=== PATIENT | female | born 1970 | race Caucasian/White ===

== ENCOUNTER 2017-08-13 17:37 | Emergency (ER) ==
[2017-08-13 17:40] VITALS: BP 144/85; TEMP 98.8; BMI 35.6
--- NOTE | 2017-08-13 18:08 | ED.PDOC ---
General ED Provider: Dr. YAMEL COX Chief Complaint: Headache Stated Complaint: Frontal CACERES since this AM. Visiting with her daughter who was dx'd with sinusitis yesterday. PMH of migraines but Current headache is different. No photophobia. Increasing nausea and vomitting this afternoon. Started vomitting streaks of blood. Time Seen by Physician: 17:59 Mode of Arrival: Walk-In Information Source: Patient Exam Limitations: No limitations Nursing and Triage Documentation Reviewed and Agree: Yes Neurological Complaint Exam - Headache Complaint/Exam Onset: Sudden Duration: 10 hours Symptoms Are: Still present Timing: Constant Episodes Lasting: Hours Worst Headache Ever: No Initial Severity: Severe Current Severity: Severe Location: Right, Left, Frontal (left side > right) Character: Reports: Throbbing Aggravating: Reports: None Alleviating: Reports: None Associated Signs and Symptoms: Reports: Nausea, Vomiting Related Surgical History: Reports: None SAH Risk Factors: Reports: None Meningitis Risk Factors: Reports: None SDH Risk Factors: Reports: None Temporal Arteritis Risk Factors: Reports: Female, Normal Head CT Within Last 12 Months: No Fundoscopic Exam: Present: Normal Findings Papilledema Present: No Temporal Artery Tenderness: Present: None Sinus Tenderness: Present: Maxillary (left only), Frontal (left only) TMJ Tenderness: Present: None Meningeal Signs Positive: No Pain on Passive Flexion-Positive Kernig's: No ROM Limited In: No Limitiations Focal Weakness: Present: None Focal Sensory Loss: Present: None Gait: Normal Nystagmus Present: No Gag Reflex Present: Yes [id number]: Normal Findings Romberg Test Positive: No Babinski Sign: Negative Right, Negative Left Heel to Toe Normal: No Differential Diagnoses: Sinus Headache Review of Systems - Review Of Systems Constitutional: Reports: Malaise Eyes: Reports: No symptoms Ears, Nose, Mouth, Throat: Reports: No symptoms (except some sinus pressure) Respiratory: Reports: No symptoms Cardiac: Reports: No symptoms GI: Reports: Nausea, Vomiting (streaks of blood in vomitus) : Reports: No symptoms Musculoskeletal: Reports: No symptoms, Neck pain (multiple bulging cervical disks, vomitting is aggravating them with inc neck pain) Skin: Reports: No symptoms Neurological: Reports: Headache All Other Systems: Reviewed and Negative Past Medical History - Past Medical History Endocrine: Reports: DM 2 Cardiovascular: Reports: Hypertension Respiratory: Reports: None Hematological: Reports: None Gastrointestinal: Reports: None Genitourinary: Reports: None Neuro/Psych: Reports: None Musculoskeletal: Reports: Arthritis Cancer: Reports: None Last Menstrual Period: N/A - Surgical History General Surgical History: Reports: None - Family History Family History: Reports: Unknown - Social History Smoking Status: Current every day smoker Hx Substance Use: No Alcohol Screening: None Lives: With family - Immunizations Tetanus Shot up to Date: No Influenza Vaccine within 12 Months: No Pneumococcal Vaccine up to Date: No Physical Exam - Physical Exam Appearance: Well-appearing, Well-nourished Ill-appearing: None Pain Distress: Moderate Eyes: NOREEN, EOMI, Conjunctiva clear ENT: Nose normal, Oropharynx normal, TMs Occluded (TMs garcia and dull, tender to percussion over left maxillary and frontal sinuses) Neck: Supple (mild anterior cervical lymphadenopathy) Respiratory: Airway patent, Breath sounds clear, Breath sounds equal, Respirations nonlabored Cardiovascular: RRR, Pulses normal, No rub, No murmur GI/: Soft, Nontender, No masses, Bowel sounds normal, No Organomegaly Musculoskeletal: Normal strength, ROM intact, No edema, No calf tenderness Skin: Warm, Dry, Normal color Neurological: Sensation intact, Motor intact, Reflexes intact, Cranial nerves intact, Alert, Oriented Psychiatric: Affect appropriate, Mood appropriate Critical Care Note - Critical Care Note Total Time (mins): 0 Course - Course Orders, Labs, Meds: Orders Category Date Time Status Morphine Sulfate [Morphine 2 mg/ml Syringe] MEDS 08/13/17 18:15 Stat 2 mg IM ONCE STA Ondansetron [Zofran Odt] MEDS 08/13/17 18:15 Stat 4 mg PO ONCE STA Medications Discontinued Medications Generic Name Dose Route Start Last Admin Trade Name Freq PRN Reason Stop Dose Admin Morphine Sulfate 2 mg 08/13/17 18:15 Morphine 2 Mg/Ml Syringe IM 08/13/17 18:16 ONCE STA Ondansetron HCl 4 mg 08/13/17 18:15 Zofran Odt PO 08/13/17 18:16 ONCE STA Vital Signs: Temp Pulse Resp BP Pulse Ox 08/13/17 17:37 98.8 F 86 20 144/85 H 96 Departure - Departure Time of Disposition: 18:25 Disposition: HOME SELF-CARE Discharge Problem: Sinusitis Instructions: Sinusitis (ED) Condition: Good Pt referred to PMD for follow-up: No (if no better in 3 days, see doctor) Additional Instructions: Do not take any decongestant. It will raise your blood pressure. Try plain Mucinex 600 mg 2 tablets twice a day, round the clock. Prescriptions: Acetaminophen with Codeine [Tylenol #3 Tab] 1 tab PO Q4H #20 tablet Azithromycin [Zithromax] 500 mg PO DAILY #5 tablet Allergies/Adverse Reactions: Allergies venlafaxine [From Effexor] Adverse Reaction (Verified 08/13/17 17:40) Home Medications: Ambulatory Orders Acetaminophen with Codeine [Tylenol #3 Tab] 1 tab PO Q4H #20 tablet 08/13/17 Azithromycin [Zithromax] 500 mg PO DAILY #5 tablet 08/13/17 Hydrochlorothiazide 25 mg PO DAILY 08/13/17 Lamotrigine [Lamictal] 100 mg PO DAILY 08/13/17 Metoprolol Tartrate 100 mg PO DAILY 08/13/17 Quetiapine Fumarate [Seroquel] 100 mg PO BEDTIME 08/13/17 Disposition Discussed With: Patient
[2017-08-13] MEDS ORDERED: ZOFRAN ODT PO STA (18:15)
[2017-08-13] MEDS ORDERED: MORPHINE 2 MG/ML SYRINGE IM STA (18:15)
== END 2017-08-13 18:48 | disposition home or self-care (01) ==
LOC: ED 17:37
DX: J32.9 Chronic sinusitis, unspecified (principal); F17.210 Nicotine dependence, cigarettes, uncomplicated
CPT/HCPCS: 96372; 99283